=== PATIENT | male | born 1955 | race Caucasian/White ===

== ENCOUNTER 2022-12-03 19:21 | Inpatient (IN) | payer MEDICARE, OTHER ==
[~2022-12-03 19:21] MED LIST: Iopamidol-370 76% 500 ML MDV (1 ML CHARGE) ONE
[2022-12-03 20:02] LABS: #Basophils 0.1 thou/uL (0.0-0.2); #Eosinphils 0.2 thou/uL (0.0-0.7); #Lymphocytes 2.2 thou/uL (1.20-3.40); #Monocytes 0.9 thou/uL (0.11-0.59); #Neutrophils 7.1 thou/uL (1.40-6.50); %Basophils 0.6 % (0.0-1.0); %Eosinophils 1.7 % (0.0-10.0); %Lymphocytes 21.3 % (21.0-51.0); %Monocytes 8.7 % (0.0-10.0); %Neutrophils 67.7 % (42.0-75.0); Hemoglobin 15.7 g/dL (14.0-18.0); Mean Corpuscular HGB CONC 32.9 g/dL (32.0-36.0); Mean Corpuscular Hemoglobin 29.6 pg (27.0-31.0); Mean Corpuscular Volume 89.8 fl (78.0-98.0); Mean Platelet Volume 8.3 fL (7.4-10.4); Platelet Count 206 10x3/uL (130-400); RBC Distribution Width 13.7 % (11.5-14.5); White Blood Cell (WBC) Count 10.5 10x3/uL (4.8-10.8)
[2022-12-03 20:29] LABS: ALT (SGPT) 27 U/L (8-55); AST (SGOT) 26 U/L (5-34); Albumin 4.1 g/dL (3.4-4.8); Alkaline Phosphatase 88 U/L (40-110); Anion Gap 17 mmol/L (10-20); BUN (Urea Nitrogen) 18 mg/dL (8.4-25.7); Bilirubin, Total 0.4 mg/dL (0.2-1.2); Calc. Creatinine Clearance 0 mL/min (70-130); Calcium 9.6 mg/dL (7.8-10.44); Carbon Dioxide 22 mmol/L (23-31); Chloride 103 mmol/L (98-107); Estimated GFR 75; Globulin 3.3 g/dL (2.4-3.5); Glucose 244 mg/dL (80-115); Potassium 4.1 mmol/L (3.5-5.1); Protein, Total 7.4 g/dL (5.8-8.1); Sodium 138 mmol/L (136-145)
[2022-12-03] MEDS ORDERED: Ondansetron ODT 4 MG TAB PO PRN (22:21)
[2022-12-03] MEDS ORDERED: Dextrose 5% in Water 1,000 ML IV PRN (22:21)
[2022-12-03] MEDS ORDERED: Ondansetron PF 4 MG/2 ML Vial IVP PRN (22:21)
[2022-12-03] MEDS ORDERED: HumaLOG 300 UNITS/3 ML VIAL SC PRN ×2 (22:21)
[2022-12-03] MEDS ORDERED: hydrALAZINE 20 MG/ML VIAL SLOW IVP PRN (22:21)
[2022-12-03] MEDS ORDERED: Dextrose 50% Abboject 50 ML SYRINGE SLOW IVP PRN (22:21)
[2022-12-03] MEDS ORDERED: Acetaminophen 650 MG Suppository PR PRN (22:21)
[2022-12-03] MEDS ORDERED: Acetaminophen 325 MG TAB PO PRN (22:21)
[2022-12-04 01:15] VITALS: BMI 38.0
[2022-12-04 05:15] LABS: #Basophils 0.1 thou/uL (0.0-0.2); #Eosinphils 0.2 thou/uL (0.0-0.7); #Lymphocytes 2.7 thou/uL (1.20-3.40); #Monocytes 0.9 thou/uL (0.11-0.59); #Neutrophils 5.7 thou/uL (1.40-6.50); %Basophils 0.5 % (0.0-1.0); %Lymphocytes 28.5 % (21.0-51.0); %Monocytes 9.6 % (0.0-10.0); %Neutrophils 59.5 % (42.0-75.0); Hemoglobin 14.4 g/dL (14.0-18.0); Mean Corpuscular HGB CONC 32.7 g/dL (32.0-36.0); Mean Corpuscular Hemoglobin 29.3 pg (27.0-31.0); Mean Corpuscular Volume 89.7 fl (78.0-98.0); Mean Platelet Volume 8.1 fL (7.4-10.4); Platelet Count 184 10x3/uL (130-400); RBC Distribution Width 13.6 % (11.5-14.5); Red Blood Cell (RBC) Count 4.92 mill/uL (4.70-6.10); White Blood Cell (WBC) Count 9.6 10x3/uL (4.8-10.8)
[2022-12-04 05:43] LABS: Anion Gap 14 mmol/L (10-20); BUN (Urea Nitrogen) 17 mg/dL (8.4-25.7); Calc. Creatinine Clearance 132 mL/min (70-130); Carbon Dioxide 22 mmol/L (23-31); Cardiac Risk 3.1 (Less than 4.5); Chloride 107 mmol/L (98-107); Cholesterol 90 mg/dl (< 200 Desired); Estimated GFR 96; Glucose 73 mg/dL (80-115); HDL Cholesterol 29 mg/dL (>60 Neg Risk); Potassium 4.1 mmol/L (3.5-5.1); Sodium 139 mmol/L (136-145)
[2022-12-04 05:55] LABS: LDL Cholesterol, Calculated 37 mg/dL
[2022-12-04 06:00] LABS: Triglycerides 77 mg/dL (Less than 150)
[2022-12-04 06:02] LABS: Troponin I 0.028 ng/mL (< 0.028)
[2022-12-04] MEDS: Aspirin 81 mg Enteric Coated Tablet PO SCH (09:02)
[2022-12-04] MEDS ORDERED: Clopidogrel Bisulfate 75 MG TAB PO SCH (13:30)
[2022-12-04] MEDS: Carvedilol 6.25 MG TAB PO SCH (17:24)
[2022-12-04] MEDS ORDERED: Insulin Glargine 30 UNITS/0.3 ML VIAL SC SCH (21:00)
[2022-12-04] MEDS ORDERED: Atorvastatin Calcium 40 MG TAB PO SCH (21:00)
[2022-12-04] MEDS ORDERED: Insulin Regular 300 UNITS/3 ML VIAL ONE (21:32)
[2022-12-05 05:42] LABS: Hemoglobin 14.5 g/dL (14.0-18.0); Mean Corpuscular HGB CONC 31.7 g/dL (32.0-36.0); Mean Corpuscular Hemoglobin 28.7 pg (27.0-31.0); Mean Corpuscular Volume 90.4 fl (78.0-98.0); Mean Platelet Volume 8.3 fL (7.4-10.4); Platelet Count 192 10x3/uL (130-400); RBC Distribution Width 13.6 % (11.5-14.5); Red Blood Cell (RBC) Count 5.07 mill/uL (4.70-6.10); White Blood Cell (WBC) Count 8.2 10x3/uL (4.8-10.8)
[2022-12-05 06:07] LABS: Anion Gap 11 mmol/L (10-20); BUN (Urea Nitrogen) 14 mg/dL (8.4-25.7); Calc. Creatinine Clearance 129 mL/min (70-130); Carbon Dioxide 28 mmol/L (23-31); Chloride 106 mmol/L (98-107); Potassium 4.2 mmol/L (3.5-5.1); Sodium 141 mmol/L (136-145)
[2022-12-05 06:08] LABS: ALT (SGPT) 25 U/L (8-55); AST (SGOT) 21 U/L (5-34); Albumin 3.9 g/dL (3.4-4.8); Alkaline Phosphatase 59 U/L (40-110); Bilirubin, Total 0.8 mg/dL (0.2-1.2); Calcium 9.5 mg/dL (7.8-10.44); Estimated GFR 95; Globulin 2.7 g/dL (2.4-3.5); Glucose 84 mg/dL (80-115); Protein, Total 6.6 g/dL (5.8-8.1)
[2022-12-05] MEDS: Carvedilol 6.25 MG TAB PO SCH (08:44)
[2022-12-05] MEDS: Aspirin 81 mg Enteric Coated Tablet PO SCH (08:44)
[2022-12-05] MEDS ORDERED: Amlodipine 5 MG TAB PO SCH (09:00)
[2022-12-05] MEDS ORDERED: Clopidogrel Bisulfate 75 MG TAB PO SCH (09:00)
[2022-12-05] MEDS ORDERED: Ezetimibe 10 MG TAB PO SCH (09:00)
[2022-12-05] MEDS ORDERED: Empagliflozin 25 MG TAB PO SCH (09:00)
[2022-12-05 11:11] VITALS: TEMP 97.1
[2022-12-05 12:14] VITALS: BP 121/68
== END 2022-12-05 14:52 | disposition home or self-care (01) | DRG 123 ==
LOC: ERS 19:21 → NEURO 21:37 → OBSVTOIN 12-04 16:34
PROVIDERS: ADMIT Hospitalist; ATTEND Hospitalist
DX: H49.01 Third [oculomotor] nerve palsy, right eye (principal); I47.1 Supraventricular tachycardia; I25.10 Atherosclerotic heart disease of native coronary artery without angina pectoris; M19.90 Unspecified osteoarthritis, unspecified site; E78.5 Hyperlipidemia, unspecified; I50.9 Heart failure, unspecified; I11.0 Hypertensive heart disease with heart failure; Z95.1 Presence of aortocoronary bypass graft; Z79.899 Other long term (current) drug therapy; Z79.4 Long term (current) use of insulin; Z79.84 Long term (current) use of oral hypoglycemic drugs; Z98.890 Other specified postprocedural states; Z87.891 Personal history of nicotine dependence
CPT/HCPCS: 36415; 36416; 70450; 70496; 70498; 70551; 71045; 80048; 80053; 80061; 84484; 85025; 85027; 93005; 93010; 93306; G0378; J1815; Q9967

== ENCOUNTER 2023-07-22 06:58 | Outpatient (CLI) | payer OTHER | END 2023-07-22 06:59 | disposition home or self-care (01) | LOC: BICULT 06:58 | PROVIDERS: ATTEND Family Medicine | DX: Z12.2 Encounter for screening for malignant neoplasm of respiratory organs (principal); Z13.6 Encounter for screening for cardiovascular disorders; I25.10 Atherosclerotic heart disease of native coronary artery without angina pectoris; Z87.891 Personal history of nicotine dependence | CPT/HCPCS: 36415; 71271; 76775; 80053; 80061 ==

== ENCOUNTER 2023-07-23 11:30 | Outpatient (CLI) | payer OTHER | END 2023-07-23 11:31 | disposition home or self-care (01) | LOC: BICRAD 11:30 | PROVIDERS: ATTEND Family Medicine | DX: M25.572 Pain in left ankle and joints of left foot (principal); M79.89 Other specified soft tissue disorders; M25.772 Osteophyte, left ankle; M61.9 Calcification and ossification of muscle, unspecified ==

== ENCOUNTER 2024-01-21 09:28 | Outpatient (CLI) | payer OTHER | END 2024-01-21 09:29 | disposition home or self-care (01) | LOC: BICCT 09:28 | PROVIDERS: ATTEND Family Medicine | DX: Z12.2 Encounter for screening for malignant neoplasm of respiratory organs (principal); R91.8 Other nonspecific abnormal finding of lung field; Z87.891 Personal history of nicotine dependence | CPT/HCPCS: 71271 ==

== ENCOUNTER 2024-02-23 16:00 | Outpatient (CLI) | payer OTHER | END 2024-02-23 16:01 | disposition home or self-care (01) | LOC: SLEEPLAB 16:00 | PROVIDERS: ATTEND Family Medicine | DX: G47.33 Obstructive sleep apnea (adult) (pediatric) (principal); E11.9 Type 2 diabetes mellitus without complications; E66.9 Obesity, unspecified; R06.83 Snoring; I10 Essential (primary) hypertension; I25.10 Atherosclerotic heart disease of native coronary artery without angina pectoris; E78.5 Hyperlipidemia, unspecified; G47.61 Periodic limb movement disorder; Z68.39 Body mass index [BMI] 39.0-39.9, adult | CPT/HCPCS: 95811 ==

== ENCOUNTER 2024-02-28 07:03 | Outpatient (CLI) | payer OTHER | END 2024-02-28 07:04 | disposition home or self-care (01) | LOC: BICULT 07:03 | PROVIDERS: ATTEND Family Medicine | DX: N49.2 Inflammatory disorders of scrotum (principal); N50.89 Other specified disorders of the male genital organs | CPT/HCPCS: 76870; 93976 ==